=== PATIENT | female | born 1990 | race African-American/Black ===

== ENCOUNTER 2022-09-02 14:27 | Emergency (ER) | payer OTHER ==
[2022-09-02] MEDS ORDERED: ONDANSETRON 4 MG/2 ML VIAL IVPUSH ONE (14:53)
[2022-09-02] MEDS ORDERED: SODIUM CHLORIDE 1,000 ML IV STA (14:53)
[2022-09-02] MEDS ORDERED: ACETAMINOPHEN 1000 MG/100 ML BAG IVPB ONE (14:53)
[2022-09-02] MEDS ORDERED: FAMOTIDINE 20 MG/50 ML IVPB 20 MG/50 ML MG IVPB ONE ×2 (14:53→15:01)
[2022-09-02] MEDS ORDERED: ONDANSETRON 4 MG/2 ML VIAL ONE (15:01)
[2022-09-02] MEDS ORDERED: ACETAMINOPHEN INJECTION 100 ML IVPB ONE (15:01)
[2022-09-02 15:07] VITALS: BP 117/76; PULSE 107; RESP 16; TEMP 99.3; BMI 23.1
[2022-09-02 15:59] LABS: HCG,QUALITATIVE URINE Negative
[2022-09-02 16:01] LABS: ALBUMIN 3.8 g/dl (3.4-5.0); BILIRUBIN,TOTAL 0.7 mg/dl (0.2-1); CALCIUM 9.3 mg/dl (8.5-10); CREATININE 0.5 mg/dl (0.55-1.3)
[2022-09-02 17:30] LABS: BASO % 0.6 % (0-2.0); EOS % 0.7 % (0-4.5); HEMATOCRIT 41.3 % (32.4-45.2); HEMOGLOBIN 14.3 GM/dL (10.7-15.3); LYMPH % 26.9 % (8-40); MCH 32.5 pg (25.7-33.7); MCHC 34.5 g/dl (32.0-36.0); MEAN CELL VOLUME 94.1 fl (80-96); MEAN PLT VOLUME 9.2 fl (7.5-11.1); MONO % 7.7 % (3.8-10.2); NEUT % 64.1 % (42.8-82.8); PLATELET COUNT 318 10^3/uL (134-434); RBC 4.39 M/mm3 (3.60-5.2); RDW 12.6 % (11.6-15.6); WHITE BLOOD COUNT 7.6 K/mm3 (4.0-10.0)
[2022-09-02] MEDS ORDERED: CEFTRIAXONE 1,000 MG in DEXTROSE 5%-WATER - 50 ML IVPB ONE (17:49)
[2022-09-02] MEDS ORDERED: cefTRIAXone SODIUM 1 GM VIAL ONE (17:51)
== END 2022-09-02 18:56 | disposition home or self-care (01) ==
LOC: FER 14:27
PROC: 3E033GC Introduction of Other Therapeutic Substance into Peripheral Vein, Percutaneous Approach (ICD-10-PCS; principal; 2022-09-02)
PROC: 3E033GC Introduction of Other Therapeutic Substance into Peripheral Vein, Percutaneous Approach (ICD-10-PCS; 2022-09-02)
PROC: 3E033NZ Introduction of Analgesics, Hypnotics, Sedatives into Peripheral Vein, Percutaneous Approach (ICD-10-PCS; 2022-09-02)
PROC: 3E033GC Introduction of Other Therapeutic Substance into Peripheral Vein, Percutaneous Approach (ICD-10-PCS; 2022-09-02)
PROC: 3E0337Z Introduction of Electrolytic and Water Balance Substance into Peripheral Vein, Percutaneous Approach (ICD-10-PCS; 2022-09-02)
DX: J91.8 Pleural effusion in other conditions classified elsewhere (principal); N39.0 Urinary tract infection, site not specified
CPT/HCPCS: 36415; 71046-TC-FY; 74177-TC; 80053; 81003; 81015; 83690; 84703; 85025; 87086; 87186; 99285-25; Q9967